=== PATIENT | male | born 1960 | race African-American/Black ===

== ENCOUNTER 2020-11-04 12:06 | Observation (INO) ==
[2020-11-04] MEDS ORDERED: ACETAMINOPHEN 325 MG TABLET PO PRN (16:21)
[2020-11-04] MEDS ORDERED: DEXTROSE 50% 25 GM/50 ML VIAL IV PRN ×2 (16:21)
[2020-11-04] MEDS ORDERED: ONDANSETRON 4 MG/2 ML VIAL IV PRN (16:21)
[2020-11-04] MEDS ORDERED: GLUCAGON 1 MG VIAL IM PRN ×2 (16:21)
[2020-11-04] MEDS ORDERED: ENOXAPARIN 40 MG/0.4 ML SYRINGE SUBCUT SCH (16:30)
[2020-11-04] MEDS: INSULIN LISPRO 100 UNIT/ML SUBCUT SCH ×2 (16:41→21:00)
[2020-11-04] MEDS ORDERED: hydrALAZINE 20 MG/1 ML VIAL IV PRN (16:48)
[2020-11-04 16:56] LABS: Basophils % 0.3 % (0.0-0.8); Hematocrit 44.5 VOL% (42.0-52.0); Hemoglobin 13.9 GM/DL (14.0-18.0); Immature Granulocytes % 0.5 %; Immature Granulocytes Absolute 0.06 #; Lymphocytes # 1.4 10*3/uL (1.4-4.0); Lymphocytes % 12.4 % (21.2-54.2); Mean Corpuscular HGB Conc 31.2 GM/DL (32-36); Mean Corpuscular Volume 86.6 FL (87-102); Mean Platelet Volume 10.8 FL (9.6-12.0); Monocytes % 7.7 % (1.7-12.7); Neutrophils % 79.1 % (38.7-73.9); Platelet Count 179 T/CUMM (130-400); Red Blood Count 5.14 MC/CUMM (3.8-5.5); Red Cell Distribution Width 18.9 % (9.3-17.3); White Blood Count 11.6 T/CUMM (4-12)
[2020-11-04 17:09] LABS: Calcium 9.3 MG/DL (8.5-10.1); Osmolality,Calculated 278.4 MOS/KG (273-304); Potassium 3.3 MMOL/L (3.5-5.1)
[2020-11-04 17:20] LABS: Hypochromasia 1+; Lymphocytes 13 % (20-55); Segmented Neutrophils 79 % (50-85); Target Cells 1+; Total Cells Counted 100
[2020-11-04 17:21] LABS: Anisocytosis Slight; Platelet Estimate Adequate; Polychromasia Few
[2020-11-04] MEDS ORDERED: POTASSIUM CHLORIDE 20 MEQ TABLET PO PRN (17:51)
[2020-11-04] MEDS ORDERED: MAGNESIUM SULF RIDER 2 GM/50 ML PREMIX IV PRN (17:52)
[2020-11-04] MEDS ORDERED: MAGNESIUM SULF RIDER 4 GM/100 ML PREMIX IV PRN (17:52)
[2020-11-04 18:33] VITALS: BP 170/82
[2020-11-04] MEDS ORDERED: ESMOLOL 2,500 MG/250 ML PREMIX IV SCH (19:00)
[2020-11-04] MEDS ORDERED: MORPHINE 4 MG/1 ML VIAL IV PRN (19:13)
[2020-11-04] MEDS ORDERED: METOPROLOL TARTRATE 100 MG TABLET PO SCH (21:00)
[2020-11-05] MEDS ORDERED: NICOTINE 21 MG/24 HR PATCH TRANSDERM SCH (09:00)
== END 2020-11-04 20:51 | disposition hospice, home (50) ==
LOC: N.TELES → SUATTDRO 15:39 → N.ICU 19:38
PROVIDERS: ADMIT Internal Medicine; ATTEND Internal Medicine